=== PATIENT | female | born 1940 | race Hispanic/Latino ===

== ENCOUNTER 2017-06-05 07:56 | Day surgery (SDC) | payer OTHER ==
[~2017-06-05] VITALS: Ht 157.5 cm; Wt 49.2 kg
[~2017-06-05 07:56] MED LIST: ANASEPT; LEVO50TA11 PO; LISI2.5T2 PO; METF500T6 PO; NAPR-1023 PO; SERT50TA12 PO; SIMV5TAB6 PO
[2017-06-05] MEDS ORDERED: SODIUM CHLORIDE 0.9% 1000ML 1,000 ML IV ONE (08:36)
[2017-06-05 08:47] VITALS: BP 180/58
[2017-06-05] MEDS ORDERED: PROPOFOL 10 MG/ML 20ML VIAL IV ONE (09:58)
[2017-06-05 10:03] VITALS: BP 91/41
== END 2017-06-05 10:55 | disposition home or self-care (01) ==
LOC: DAH 07:56
PROVIDERS: ATTEND Internal Medicine Gastroenterology
DX: K57.30 Diverticulosis of large intestine without perforation or abscess without bleeding (principal); E11.9 Type 2 diabetes mellitus without complications; E03.9 Hypothyroidism, unspecified; I10 Essential (primary) hypertension; E78.5 Hyperlipidemia, unspecified; Z79.899 Other long term (current) drug therapy; Z79.84 Long term (current) use of oral hypoglycemic drugs; F32.9 Major depressive disorder, single episode, unspecified; N39.0 Urinary tract infection, site not specified
CPT/HCPCS: 45378; 82948 ×2; 93005; A4606; J2704; J7030